=== PATIENT | male | born 1965 | race Caucasian/White ===

== ENCOUNTER 2016-12-18 11:10 | Emergency (ER) | payer MEDICAID ==
[~2016-12-18] VITALS: Ht 185.4 cm; Wt 149.7 kg
[2016-12-18 11:37] VITALS: BP 135/77
[2016-12-18] MEDS ORDERED: KETOROLAC TROMETH 60MG/2ML VIAL IM ONE (11:45)
== END 2016-12-18 12:54 | disposition home or self-care (01) ==
LOC: ER 11:10
DX: M54.5 Low back pain (principal); M47.896 Other spondylosis, lumbar region; Z88.0 Allergy status to penicillin
CPT/HCPCS: 72110; 73502; 96372; 99284; J1885

== ENCOUNTER 2017-05-18 07:41 | Emergency (ER) | payer MEDICAID ==
[~2017-05-18] VITALS: Ht 182.9 cm; Wt 99.8 kg
[2017-05-18 07:52] VITALS: BP 129/79
[2017-05-18] MEDS: ALBUTEROL SULF 2.5 MG/0.5ML(0.5%) NEB SOLN NEB ONE (09:05)
[2017-05-18] MEDS: IPRATROPIUM BROM 0.5 MG/2.5ML INH SOL NEB ONE (09:05)
== END 2017-05-18 09:40 | disposition home or self-care (01) ==
LOC: ER 07:45
DX: S83.8X2A Sprain of other specified parts of left knee, initial encounter (principal); J20.9 Acute bronchitis, unspecified; E11.9 Type 2 diabetes mellitus without complications; I10 Essential (primary) hypertension; X58.XXXA Exposure to other specified factors, initial encounter; Y93.89 Activity, other specified; Y99.8 Other external cause status; Y92.89 Other specified places as the place of occurrence of the external cause
CPT/HCPCS: 71020; 94640

== ENCOUNTER 2017-07-05 08:28 | Emergency (ER) | payer MEDICAID ==
[~2017-07-05] VITALS: Ht 182.9 cm; Wt 141.1 kg
[2017-07-05 08:48] VITALS: BP 147/93
[2017-07-05] MEDS ORDERED: methylPREDNISolone SOD SUCC 125 MG/2 ML VL IM ONE (09:30)
[2017-07-05] MEDS ORDERED: IPRATROPIUM BROM 0.5 MG/2.5ML INH SOL NEB ONE (09:30)
[2017-07-05] MEDS ORDERED: ALBUTEROL SULF 2.5 MG/0.5ML(0.5%) NEB SOLN NEB ONE (09:30)
== END 2017-07-05 10:08 | disposition home or self-care (01) ==
LOC: ER 08:28
DX: J20.9 Acute bronchitis, unspecified (principal); I10 Essential (primary) hypertension; E11.9 Type 2 diabetes mellitus without complications; J45.909 Unspecified asthma, uncomplicated
CPT/HCPCS: 71020; 93005; 94640; 96372; 99284; J2930

== ENCOUNTER 2017-08-15 10:43 | Emergency (ER) | payer MEDICAID ==
[~2017-08-15] VITALS: Ht 182.9 cm; Wt 144.2 kg
[2017-08-15 11:43] LABS: Basophils # (auto) 0.1 uL; Basophils % (auto) 1.2 % (0.0-2.0); Eosinophils # (auto) 0.6 uL; Eosinophils % (auto) 6.5 % (0.0-7.0); Hematocrit 45.4 % (41.0-53.0); Hemoglobin 15.5 g/dL (13.5-17.5); Mean Corpuscular Hemoglobin 30.7 pg (28.0-32.0); Mean Corpuscular Hgb Conc. 34.2 g/dL (32.0-36.0); Mean Corpuscular Volume 89.7 fL (80.0-100.0); Mean Platelet Volume 7.1 fL (6.9-10.8); Monocytes # (auto) 0.5 uL; Monocytes % (auto) 6.1 % (0.0-12.0); Neutrophils # (auto) 5.7 uL; Neutrophils % (auto) 64.2 % (37.0-80.0); Nucleated Red Blood Cells % 0.1 %; Platelet Count (auto) 229 10^3/uL (140-450); Red Cell Distribution Width 15.1 % (11.8-14.3); White Blood Cell 8.9 10^3/uL (4.4-10.8)
[2017-08-15 12:07] LABS: Albumin 3.8 g/dL (3.4-5.0); BUN/Creatinine Ratio 17.7; Bilirubin, Total 0.5 mg/dL (0.2-1.0); Calcium 9.2 mg/dL (8.5-10.1); Potassium 3.8 mmol/L (3.5-5.1); Total Protein 7.9 g/dL (6.4-8.2)
[2017-08-15 14:39] VITALS: BP 127/82
== END 2017-08-15 15:07 | disposition home or self-care (01) ==
LOC: ER 10:43
DX: J44.9 Chronic obstructive pulmonary disease, unspecified (principal); E11.9 Type 2 diabetes mellitus without complications; I10 Essential (primary) hypertension
CPT/HCPCS: 36415; 71020; 80053; 85025; 93005

== ENCOUNTER 2017-10-10 06:28 | Emergency (ER) | payer MEDICAID ==
[~2017-10-10] VITALS: Ht 182.9 cm; Wt 140.6 kg
[2017-10-10 07:30] LABS: Basophils # (auto) 0.1 uL; Basophils % (auto) 1.2 % (0.0-2.0); Eosinophils # (auto) 0.5 uL; Eosinophils % (auto) 5.1 % (0.0-7.0); Hematocrit 45.3 % (41.0-53.0); Hemoglobin 15.6 g/dL (13.5-17.5); Lymphocytes # (auto) 1.9 uL; Lymphocytes % (auto) 20.4 % (10.0-50.0); Mean Corpuscular Hemoglobin 30.9 pg (28.0-32.0); Mean Corpuscular Hgb Conc. 34.5 g/dL (32.0-36.0); Mean Corpuscular Volume 89.8 fL (80.0-100.0); Mean Platelet Volume 7.4 fL (6.9-10.8); Monocytes # (auto) 0.6 uL; Monocytes % (auto) 6.5 % (0.0-12.0); Neutrophils # (auto) 6.1 uL; Neutrophils % (auto) 66.8 % (37.0-80.0); Nucleated Red Blood Cells % 0.1 %; Platelet Count (auto) 243 10^3/uL (140-450); Red Cell Distribution Width 15.4 % (11.8-14.3); White Blood Cell 9.1 10^3/uL (4.4-10.8)
[2017-10-10 07:33] LABS: Urine Bilirubin Negative (Negative); Urine Blood Negative /uL (Negative); Urine Color Yellow (Yellow); Urine Glucose 4+ mg/dL (Normal); Urine Ketone Negative (Negative); Urine Nitrite Negative (Negative); Urine RBC <1 /hpf (0 - 3); Urine Urobilinogen Normal (Negative); Urine pH 5.5 (5.0-8.0)
[2017-10-10 07:53] LABS: Albumin 3.7 g/dL (3.4-5.0); Alkaline Phosphatase 71 U/L (45-117); Anion Gap 12 (5-15); Aspartate Aminotransferase 78 U/L (15-37); BUN/Creatinine Ratio 15.7; Bilirubin, Total 0.5 mg/dL (0.2-1.0); Blood Urea Nitrogen 18 mg/dL (7-18); Calcium 8.7 mg/dL (8.5-10.1); Carbon Dioxide 23 mmol/L (21-32); Chloride 104 mmol/L (98-107); GFR African American 86 mL/min; GFR Non-African American 71 mL/min; Glucose 209 mg/dL (74-106); Magnesium 2.1 mg/dL (1.6-2.6); Potassium 3.9 mmol/L (3.5-5.1); Sodium 139 mmol/L (136-145); Total Protein 7.7 g/dL (6.4-8.2)
[2017-10-10] MEDS ORDERED: FUROSEMIDE 40 MG/4 ML VIAL IV ONE (09:00)
[2017-10-10] MEDS ORDERED: IPRATROPIUM BROM 0.5 MG/2.5ML INH SOL NEB ONE (09:00)
[2017-10-10] MEDS ORDERED: ALBUTEROL SULF 2.5 MG/0.5ML(0.5%) NEB SOLN NEB ONE (09:00)
[2017-10-10] MEDS ORDERED: SPIRONOLACTONE 25 MG TAB PO ONE (09:00)
[2017-10-10 10:21] VITALS: BP 126/71
== END 2017-10-10 11:11 | disposition home or self-care (01) ==
LOC: ER 06:29
DX: J20.9 Acute bronchitis, unspecified (principal); R06.00 Dyspnea, unspecified; E11.65 Type 2 diabetes mellitus with hyperglycemia; R74.8 Abnormal levels of other serum enzymes; R09.89 Other specified symptoms and signs involving the circulatory and respiratory systems; J44.1 Chronic obstructive pulmonary disease with (acute) exacerbation; I10 Essential (primary) hypertension
CPT/HCPCS: 36415; 71020; 80053; 81001; 82962; 83036; 83735; 84484; 85025; 93005; 94640; 94761; 96374; 99285; J1940

== ENCOUNTER 2017-12-21 04:59 | Emergency (ER) | payer MEDICAID ==
[~2017-12-21] VITALS: Ht 182.9 cm; Wt 147.4 kg
[2017-12-21] MEDS ORDERED: SODIUM CHLORIDE 0.9% 1,000 ML IV ONE (05:13)
[2017-12-21] MEDS ORDERED: ONDANSETRON HCL 4 MG/2 ML VIAL IV ONE (05:15)
[2017-12-21 07:04] LABS: Albumin 3.9 g/dL (3.4-5.0); BUN/Creatinine Ratio 14.7; Calcium 8.6 mg/dL (8.5-10.1); Magnesium 2.2 mg/dL (1.6-2.6); Potassium 3.9 mmol/L (3.5-5.1)
[2017-12-21 07:07] LABS: Bilirubin, Total 0.5 mg/dL (0.2-1.0); Total Protein 7.8 g/dL (6.4-8.2)
[2017-12-21] MEDS ORDERED: KETOROLAC TROMETH 30 MG/ML 1ML VIAL IV ONE (07:15)
[2017-12-21 07:23] LABS: Basophils # (auto) 0.1 uL; Basophils % (auto) 1.2 % (0.0-2.0); Eosinophils # (auto) 0.4 uL; Eosinophils % (auto) 4.8 % (0.0-7.0); Hematocrit 44.9 % (41.0-53.0); Hemoglobin 15.1 g/dL (13.5-17.5); Lymphocytes # (auto) 1.7 uL; Lymphocytes % (auto) 19.7 % (10.0-50.0); Mean Corpuscular Hemoglobin 30.5 pg (28.0-32.0); Mean Corpuscular Hgb Conc. 33.6 g/dL (32.0-36.0); Mean Corpuscular Volume 90.9 fL (80.0-100.0); Monocytes # (auto) 0.6 uL; Monocytes % (auto) 7.3 % (0.0-12.0); Neutrophils # (auto) 5.8 uL; Nucleated Red Blood Cells % 0.3 %; Platelet Count (auto) 263 10^3/uL (140-450); Red Blood Cells 4.93 10^6/uL (4.5-5.90); Red Cell Distribution Width 14.7 % (11.8-14.3); White Blood Cell 8.7 10^3/uL (4.4-10.8)
[2017-12-21] MEDS ORDERED: IOHEXOL 300 MG/ML 100ML BOTTLE IJ ONE (07:28)
[2017-12-21] MEDS ORDERED: IODIXANOL 320MG/ML 100ML BTL IV ONE (07:39)
[2017-12-21] MEDS ORDERED: PROMETHAZINE HCL 25 MG/ML 1ML IV ONE (07:45)
[2017-12-21 08:23] LABS: Urine Bacteria NONE SEEN /hpf (None Seen); Urine Blood Negative /uL (Negative); Urine Mucus FEW (None Seen); Urine WBC 1 /hpf (0 - 3)
[2017-12-21 08:34] VITALS: BP 113/68
== END 2017-12-21 09:12 | disposition home or self-care (01) ==
LOC: ER 04:59
DX: K52.9 Noninfective gastroenteritis and colitis, unspecified (principal); R42 Dizziness and giddiness; Z88.0 Allergy status to penicillin
CPT/HCPCS: 36415; 70450; 71045; 74177; 80053; 81001; 83690; 83735; 85025; 93005; 96361; 96374; 96375; 99291; J1885; J2405; J2550; Q9967

== ENCOUNTER 2017-12-22 19:18 | Emergency (ER) | payer MEDICAID ==
[~2017-12-22] VITALS: Ht 182.9 cm; Wt 102.1 kg
[2017-12-22 20:18] LABS: Basophils # (auto) 0.2 uL; Basophils % (auto) 1.5 % (0.0-2.0); Eosinophils # (auto) 0.6 uL; Eosinophils % (auto) 5.2 % (0.0-7.0); Hematocrit 46.2 % (41.0-53.0); Hemoglobin 15.3 g/dL (13.5-17.5); Lymphocytes # (auto) 2.6 uL; Lymphocytes % (auto) 22.4 % (10.0-50.0); Mean Corpuscular Hgb Conc. 33.2 g/dL (32.0-36.0); Mean Corpuscular Volume 90.6 fL (80.0-100.0); Monocytes # (auto) 0.8 uL; Monocytes % (auto) 7.3 % (0.0-12.0); Neutrophils # (auto) 7.3 uL; Neutrophils % (auto) 63.6 % (37.0-80.0); Nucleated Red Blood Cells % 0.1 %; Platelet Count (auto) 238 10^3/uL (140-450); Red Cell Distribution Width 14.8 % (11.8-14.3); White Blood Cell 11.5 10^3/uL (4.4-10.8)
[2017-12-22 20:38] LABS: Albumin 3.6 g/dL (3.4-5.0); BUN/Creatinine Ratio 15.5; Bilirubin, Total 0.4 mg/dL (0.2-1.0); Calcium 8.5 mg/dL (8.5-10.1); Potassium 3.9 mmol/L (3.5-5.1); Total Protein 7.8 g/dL (6.4-8.2)
[2017-12-22 23:37] VITALS: BP 131/85
[2017-12-23] MEDS ORDERED: MORPHINE SULFATE 4 MG/ML SYR/VIAL IV ONE (01:15)
[2017-12-23] MEDS ORDERED: ONDANSETRON HCL 4 MG/2 ML VIAL IV ONE (01:15)
== END 2017-12-23 04:43 | disposition home or self-care (01) ==
LOC: ER 19:18
DX: R51 Headache (principal); M54.5 Low back pain; J44.9 Chronic obstructive pulmonary disease, unspecified; E11.9 Type 2 diabetes mellitus without complications; I10 Essential (primary) hypertension
CPT/HCPCS: 36415; 80053; 82962; 85025; 96374; 96375; 99284; J2270; J2405; J7030

== ENCOUNTER 2018-03-01 02:43 | Emergency (ER) | payer MEDICAID ==
[~2018-03-01] VITALS: Ht 185.4 cm; Wt 147.4 kg
[2018-03-01 03:30] LABS: Basophils # (auto) 0.1 uL; Basophils % (auto) 0.9 % (0.0-2.0); Eosinophils # (auto) 0.4 uL; Eosinophils % (auto) 4.3 % (0.0-7.0); Hematocrit 46.2 % (41.0-53.0); Hemoglobin 15.4 g/dL (13.5-17.5); Lymphocytes # (auto) 1.1 uL; Lymphocytes % (auto) 12.1 % (10.0-50.0); Mean Corpuscular Hemoglobin 30.1 pg (28.0-32.0); Mean Corpuscular Hgb Conc. 33.4 g/dL (32.0-36.0); Mean Corpuscular Volume 90.3 fL (80.0-100.0); Monocytes # (auto) 0.5 uL; Monocytes % (auto) 5.9 % (0.0-12.0); Neutrophils # (auto) 6.9 uL; Neutrophils % (auto) 76.8 % (37.0-80.0); Nucleated Red Blood Cells % 0.1 %; Platelet Count (auto) 218 10^3/uL (140-450); Red Blood Cells 5.11 10^6/uL (4.5-5.90); Red Cell Distribution Width 14.9 % (11.8-14.3); White Blood Cell 8.9 10^3/uL (4.4-10.8)
[2018-03-01 03:45] LABS: Alanine Aminotransferase 184 U/L (16-61); Albumin 3.5 g/dL (3.4-5.0); Anion Gap 9 (5-15); Aspartate Aminotransferase 123 U/L (15-37); BUN/Creatinine Ratio 14.2; Blood Urea Nitrogen 18 mg/dL (7-18); Calcium 8.6 mg/dL (8.5-10.1); Carbon Dioxide 24 mmol/L (21-32); Chloride 105 mmol/L (98-107); GFR African American 76 mL/min; GFR Non-African American 63 mL/min; Glucose 175 mg/dL (74-106); Sodium 138 mmol/L (136-145)
[2018-03-01 03:46] LABS: INR 1.02 (0.9-1.15)
[2018-03-01 03:50] LABS: Alkaline Phosphatase 62 U/L (45-117); Bilirubin, Total 0.5 mg/dL (0.2-1.0); Total Protein 7.4 g/dL (6.4-8.2)
[2018-03-01] MEDS ORDERED: cefTRIAXone 1GM/10ml IVPUSH 10 ML IV ONE (05:30)
[2018-03-01] MEDS ORDERED: SUMAtriptan SUCCINATE 6 MG/0.5 ML VL SC ONE (05:30)
[2018-03-01 06:08] VITALS: BP 117/68
== END 2018-03-01 06:13 | disposition home or self-care (01) ==
LOC: ER 02:43 → EDBD 02:43 → ER 06:07
DX: J32.9 Chronic sinusitis, unspecified (principal); R07.9 Chest pain, unspecified; G43.009 Migraine without aura, not intractable, without status migrainosus; E11.9 Type 2 diabetes mellitus without complications; J44.9 Chronic obstructive pulmonary disease, unspecified; I10 Essential (primary) hypertension; E86.0 Dehydration; Z88.0 Allergy status to penicillin
CPT/HCPCS: 36415; 71045; 80053; 84443; 84484; 85025; 85379; 85610; 85730; 96372; 96374; 99285; J3030

== ENCOUNTER 2021-08-22 22:27 | Emergency (ER) | payer MEDICAID ==
[~2021-08-22] VITALS: Ht 182.9 cm; Wt 127.0 kg
[2021-08-22 22:51] VITALS: BP 151/100
== END 2021-08-22 22:58 | disposition left against medical advice (07) ==
LOC: EDBD 22:27 → ER 22:32
DX: R07.9 Chest pain, unspecified (principal); Z53.21 Procedure and treatment not carried out due to patient leaving prior to being seen by health care provider

== ENCOUNTER 2022-05-03 08:33 | Inpatient (IN) | payer MEDICAID ==
[~2022-05-03] VITALS: Ht 188 cm; Wt 104.1 kg
[2022-05-03 09:19] LABS: Basophils # (auto) 0.1 10 ^3/uL (0-0.2); Basophils % (auto) 1.5 % (0.0-2.0); Eosinophils # (auto) 0.2 10 ^3/uL (0-0.8); Eosinophils % (auto) 3.1 % (0.0-7.0); Hematocrit 49.2 % (41.0-53.0); Lymphocytes # (auto) 1.5 10 ^3/uL (0.4-5.4); Lymphocytes % (auto) 21.5 % (10.0-50.0); Mean Corpuscular Hemoglobin 29.4 pg (28.0-32.0); Mean Corpuscular Hgb Conc. 32.5 g/dL (32.0-36.0); Mean Corpuscular Volume 90.3 fL (80.0-100.0); Monocytes # (auto) 0.4 10 ^3/uL (0-1.3); Monocytes % (auto) 5.9 % (0.0-12.0); Neutrophils # (auto) 4.8 10 ^3/uL (1.6-8.6); Red Blood Cells 5.44 10^6/uL (4.5-5.90); Red Cell Distribution Width 14.6 % (11.8-14.3)
[2022-05-03 09:24] LABS: Albumin 3.9 g/dL (3.4-5.0); Calcium 8.7 mg/dL (8.5-10.1); Potassium 4.2 mmol/L (3.5-5.1)
[2022-05-03 09:27] LABS: BUN/Creatinine Ratio 21.5; Bilirubin, Total 0.4 mg/dL (0.2-1.0); Total Protein 7.5 g/dL (6.4-8.2)
[2022-05-03] MEDS ORDERED: DexAMETHasone SOD PHOS 10MG/1ML VIAL INJ IV ONE (09:30)
[2022-05-03] MEDS ORDERED: ALBUTEROL SULF 2.5 MG/0.5ML(0.5%) NEB SOLN NEB ONE (11:45)
[2022-05-03] MEDS ORDERED: IPRATROPIUM BROM 0.5 MG/2.5ML INH SOL NEB ONE (11:45)
[2022-05-03] MEDS ORDERED: MAGNESIUM SULFATE 1GM/100ML 100 ML IV ONE (11:45)
[2022-05-03] MEDS ORDERED: ALBUTEROL SULF 2.5 MG/0.5ML(0.5%) NEB SOLN ONE (11:47)
[2022-05-03] MEDS ORDERED: IPRATROPIUM BROM 0.5 MG/2.5ML INH SOL ONE (11:47)
[2022-05-03] MEDS ORDERED: MORPHINE SULFATE INJ 2 MG/ml SYRG IV PRN ×2 (12:15)
[2022-05-03] MEDS ORDERED: ONDANSETRON HCL 4 MG/2 ML VIAL IV PRN (12:15)
[2022-05-03] MEDS ORDERED: HYDROcodone-ACET 5/325MG TAB PO PRN (12:15)
[2022-05-03] MEDS ORDERED: DOCUSATE SOD 100 MG CAP PO PRN (12:15)
[2022-05-03] MEDS ORDERED: NITROGLYCERIN 0.4 MG SL TAB SL PRN (12:15)
[2022-05-03] MEDS ORDERED: ALUM & MAG HYDROX-SIMETH LIQ(MAALOX) 30 ML PO PRN (12:15)
[2022-05-03] MEDS ORDERED: ACETAMINOPHEN 325 MG TAB PO PRN (12:15)
[2022-05-03] MEDS ORDERED: DEXTROSE (50%) 50ML SYRG IV PRN ×2 (12:15→12:30)
[2022-05-03] MEDS ORDERED: PANTOPRAZOLE 40 MG TAB PO ONE (12:45)
[2022-05-03] MEDS ORDERED: IPRATROPIUM BROM 0.5 MG/2.5ML INH SOL NEB PRN (12:45)
[2022-05-03] MEDS ORDERED: ALBUTEROL SULF 2.5 MG/0.5ML(0.5%) NEB SOLN NEB PRN (12:45)
[2022-05-03 13:09] LABS: Cholesterol 155 mg/dL (< 200)
[2022-05-03 13:11] LABS: HDL Cholesterol 33 mg/dL (40-59); LDL Cholesterol 95 mg/dL (< 100); Triglycerides 251 mg/dL (< 150)
[2022-05-03 13:18] LABS: Urine WBC None Seen /hpf (0 - 3)
[2022-05-03 13:36] LABS: Urine Bacteria NONE SEEN /hpf (None Seen); Urine Blood Negative /uL (Negative); Urine Specific Gravity 1.016 (1.001-1.035)
[2022-05-03] MEDS: SODIUM CHLORIDE 0.9% 1,000 ML IV SCH (13:36)
[2022-05-03 13:46] LABS: Alcohol, Urine < 3.0 mg/dL (0-10); Amphetamine Screen, Urine NEGATIVE (NEGATIVE); Barbiturate Scree,Urine NEGATIVE (NEGATIVE); Benzodiazephine Screen, Urine NEGATIVE (NEGATIVE); Cannabinoid Screen, Urine NEGATIVE (NEGATIVE); Cocaine Screen, Urine NEGATIVE (NEGATIVE); Opiate Scree,Urine NEGATIVE (NEGATIVE); Phencyclidine Screen, Urine NEGATIVE (NEGATIVE)
[2022-05-03] MEDS ORDERED: InsuLIN REG 1unit/0.01ml Soln (100units/ml) SC SCH ×3 (17:00→22:00)
[2022-05-03] MEDS ORDERED: ACCU-CHEK COMFORT CURVE STRIP VI SCH (17:00)
[2022-05-03] MEDS: ACCU-CHEK COMFORT CURVE STRIP VI SCH ×2 (18:12→22:56)
[2022-05-03] MEDS: InsuLIN REG 1unit/0.01ml Soln (100units/ml) SC SCH (18:15)
[2022-05-03] MEDS ORDERED: LORazepam 2MG/ML-1ML VIAL IV PRN (20:15)
[2022-05-03] MEDS: BUDESONIDE (INHALATION) 0.5 MG/2 ML NEB NEB SCH (22:23)
[2022-05-03] MEDS ORDERED: FENO145T27 PO (23:31)
[2022-05-03] MEDS ORDERED: SEMA4INJ SC (23:31)
[2022-05-03] MEDS ORDERED: METF-372 PO (23:31)
[2022-05-03] MEDS ORDERED: INSU1INJ19 SC (23:32)
[2022-05-03] MEDS ORDERED: GABA300C10 PO (23:32)
[2022-05-03] MEDS ORDERED: ERTU15TA PO (23:32)
[2022-05-03] MEDS ORDERED: ERGO1CAP12 PO (23:32)
[2022-05-03] MEDS ORDERED: LOSA-39 PO (23:33)
[2022-05-03] MEDS ORDERED: ATOR40TA52 PO (23:34)
[2022-05-04] MEDS: SODIUM CHLORIDE 0.9% 1,000 ML IV SCH (04:55)
[2022-05-04 05:00] VITALS: BP 103/74
[2022-05-04] MEDS: InsuLIN REG 1unit/0.01ml Soln (100units/ml) SC SCH ×2 (06:29→11:30)
[2022-05-04] MEDS: ACCU-CHEK COMFORT CURVE STRIP VI SCH ×2 (06:29→11:30)
[2022-05-04 06:35] LABS: Basophils # (auto) 0.1 10 ^3/uL (0-0.2); Basophils % (auto) 0.6 % (0.0-2.0); Eosinophils # (auto) 0.2 10 ^3/uL (0-0.8); Eosinophils % (auto) 2.1 % (0.0-7.0); Hematocrit 44.4 % (41.0-53.0); Hemoglobin 14.9 g/dL (13.5-17.5); Lymphocytes # (auto) 2.1 10 ^3/uL (0.4-5.4); Lymphocytes % (auto) 23.3 % (10.0-50.0); Mean Corpuscular Hemoglobin 30.2 pg (28.0-32.0); Mean Corpuscular Hgb Conc. 33.5 g/dL (32.0-36.0); Mean Corpuscular Volume 90.2 fL (80.0-100.0); Monocytes # (auto) 0.7 10 ^3/uL (0-1.3); Monocytes % (auto) 7.7 % (0.0-12.0); Neutrophils # (auto) 6.1 10 ^3/uL (1.6-8.6); Neutrophils % (auto) 66.3 % (37.0-80.0); Nucleated Red Blood Cells % 0.1 %; Red Blood Cells 4.92 10^6/uL (4.5-5.90); Red Cell Distribution Width 14.5 % (11.8-14.3); White Blood Cell 9.2 10^3/uL (4.4-10.8)
[2022-05-04] MEDS: BUDESONIDE (INHALATION) 0.5 MG/2 ML NEB NEB SCH (06:43)
[2022-05-04 06:51] LABS: Albumin 3.5 g/dL (3.4-5.0); Calcium 8.4 mg/dL (8.5-10.1); Potassium 3.9 mmol/L (3.5-5.1)
[2022-05-04 06:56] LABS: BUN/Creatinine Ratio 16.9; Bilirubin, Total 0.4 mg/dL (0.2-1.0); Total Protein 6.9 g/dL (6.4-8.2)
[2022-05-04 08:00] VITALS: BP 113/69
[2022-05-04 09:00] VITALS: BP 113/69
[2022-05-04 13:00] VITALS: BP 107/67
[2022-05-04 16:58] VITALS: BP 130/80
== END 2022-05-04 17:04 | disposition left against medical advice (07) | DRG 204 ==
LOC: ER 08:33 → EDBD 08:33 → TELE 12:08 → TELE-EAST 21:57
PROVIDERS: ADMIT Family Medicine; ATTEND Internal Medicine Pulmonary Disease
DX: R55 Syncope and collapse (principal); J44.1 Chronic obstructive pulmonary disease with (acute) exacerbation; E86.0 Dehydration; I10 Essential (primary) hypertension; I45.10 Unspecified right bundle-branch block; Z53.29 Procedure and treatment not carried out because of patient's decision for other reasons; E66.01 Morbid (severe) obesity due to excess calories; E11.9 Type 2 diabetes mellitus without complications; Z20.822 Contact with and (suspected) exposure to COVID-19; E78.5 Hyperlipidemia, unspecified; Z68.29 Body mass index [BMI] 29.0-29.9, adult; Z88.0 Allergy status to penicillin
CPT/HCPCS: 36415; 70450; 70551; 71045; 80053; 80061; 80307; 81001; 82962; 83036; 83735; 83880; 84443; 84484; 85025; 85379; 93005; 93306; 93886; 94640; 95819; 96365; 96375; G0378; J1100; J1815; J2405